=== PATIENT | female | born 1980 | race Two or more races ===

== ENCOUNTER → 2017-06-13 | Outpatient (REF) | payer OTHER | LOC: M LAB REF 17:44 | PROVIDERS: ATTEND Advanced Practice Midwife | DX: Z12.4 Encounter for screening for malignant neoplasm of cervix (principal) ==

== ENCOUNTER → 2017-08-28 | Outpatient (REF) | payer OTHER | LOC: M SFHCLERA 14:36 | DX: J02.9 Acute pharyngitis, unspecified (principal) ==

== ENCOUNTER → 2018-09-07 | Outpatient (REF) | payer BC | LOC: M SFHCLERA 09:56 | PROVIDERS: ATTEND Physician Assistant | DX: R35.0 Frequency of micturition (principal) ==

== ENCOUNTER → 2018-09-07 | Outpatient (CLI) | payer BC ==
--- NOTE | 2018-09-07 11:38 | REP ---
KUB ABDOMEN AND PELVIS: KUB film of abdomen and pelvis is performed. There is moderate fecal material throughout the colon. No dilated small bowel loops are seen. Metallic clips are seen in the right upper quadrant. IMPRESSION: Moderate fecal retention. Electronically Signed by Ramon Sotomayor MD 09/07/2018 07:02 P
== END ==
LOC: M LRY 09:40
PROVIDERS: ATTEND Physician Assistant
DX: R39.9 Unspecified symptoms and signs involving the genitourinary system (principal); K59.00 Constipation, unspecified

== ENCOUNTER → 2019-02-24 | Outpatient (REF) | payer OTHER | LOC: M SFHCLERA 09:20 | PROVIDERS: ATTEND Family Medicine | DX: R10.13 Epigastric pain (principal) ==

== ENCOUNTER → 2019-05-28 | Outpatient (REF) | payer OTHER | LOC: M SFHCLERA 15:00 | PROVIDERS: ATTEND Family Medicine | DX: R33.9 Retention of urine, unspecified (principal) ==

== ENCOUNTER → 2019-05-29 | Outpatient (REF) | payer OTHER ==
[2019-05-29 20:23] LABS: APPEARANCE, URINE CLEAR (CLEAR); BACTERIA, URINE AUTO 1+ (NEGATIVE); BILIRUBIN, URINE AUTO NEGATIVE (NEGATIVE); BLOOD, URINE BLOOD 1+ (NEGATIVE); COLOR, URINE STRAW (YELLOW); GLUCOSE, URINE (UA) AUTO NEGATIVE (NEGATIVE); KETONE, URINE AUTO NEGATIVE (NEGATIVE); LEUKOCYTE ESTERASE, URINE AUTO 1+ (NEGATIVE); NITRITE, URINE AUTO NEGATIVE (NEGATIVE); PROTEIN, URINE AUTO NEGATIVE (NEGATIVE); RBC, URINE AUTO 0 /HPF (0-3); SPECIFIC GRAVITY URINE AUTO 1.004 (1.002-1.035); SQUAMOUS EPITHELIAL CELL UR AU 1 /HPF (0-6); UROBILINOGEN, URINE AUTO 0.2 mg/dL (0.0-2.0); WBC, URINE AUTO 2 /HPF (0-3)
[2019-05-29 20:24] LABS: BLOOD UREA NITROGEN 10 MG/DL (7-18); CALCIUM LEVEL 8.9 MG/DL (8.5-10.1); CARBON DIOXIDE LEVEL 28 MEQ/L (21-32); CHLORIDE LEVEL 107 MEQ/L (98-107); CREATININE FOR GFR 0.81 MG/DL (0.55-1.30); GLOMERULAR FILTRATION RATE > 60.0 (>60); GLUCOSE, FASTING 60 MG/DL (70-100); POTASSIUM SERUM 3.9 MEQ/L (3.5-5.1); SODIUM LEVEL 140 MEQ/L (136-145)
== END ==
LOC: M SFHCLERA 17:19
PROVIDERS: ATTEND Family Medicine
DX: R33.9 Retention of urine, unspecified (principal)

== ENCOUNTER → 2019-06-03 | Outpatient (CLI) | payer OTHER ==
--- NOTE | 2019-06-04 10:54 | REP ---
Clinical: Sensation of incomplete bladder emptying and frequency. Technique: Real time ramos scale and color ultrasound examination using curved array transducer. Findings: Bladder appears well distended and normal. No abnormal wall thickening or mass lesion appreciated. Bilateral ureteral jets noted. Prevoid bladder measures 10.3 x 9.0 x 10.0 cm (824 ml). Postvoid bladder measures 2.3 x 3.6 x 3.1 cm (26 ml). Postvoid residual equals 3%. Impression: Normal bladder ultrasound. Electronically Signed by Leon Vazquez MD 06/04/2019 10:46 A
== END ==
LOC: M LRY 13:28
PROVIDERS: ATTEND Family Medicine
DX: R33.9 Retention of urine, unspecified (principal)

== ENCOUNTER → 2020-01-20 | Outpatient (CLI) | payer OTHER ==
[~2020-01-20] MED LIST: E-Z-GAS II EFFERVESCENT PACKET (SODIUM BICARB./CITRIC ACID/SIMETHICONE) As Ordered ONE; E-Z-HD 98% w/w 340GM SUSP BTL As Ordered ONE; E-Z-PAQUE 96% w/w SUSP 176GM BTL As Ordered ONE
--- NOTE | 2020-01-20 19:58 | REP ---
Examination Requested: Esophagram Barium Swallow Reason For Exam/Comment: Globus sensation, dysphasia Esophagram: The procedure was performed SOHAIL Roberson, under the direct supervision of Dr. Sotomayor. The images were reviewed with Dr. Sotomayor. A single PA chest x-ray is submitted as a maturity checker film. The superior mediastinal structures are midline. The heart size is within normal limits. The lungs are clear. Liquid barium and gas producing granules were given in the erect position as well as liquid barium in the prone oblique position, in order to perform a double contrast esophagram examination. Oral and pharyngeal stages of the examination were unremarkable. Esophageal transport is efficient and there is no esophagitis, stricture, or mucosal ring noted. There is no hiatal hernia noted. Gastroesophageal reflux was not visualized during this exam. Impression: 1. Unremarkable barium swallow. 0.2 minutes of fluoroscopy time was utilized for this procedure. Some fluoroscopic images are performed with last image hold technology. These images require no additional radiation. Reviewed by SOHAIL Daniel 01/20/2020 03:16 P Electronically Signed by Ramon Sotomayor MD 01/20/2020 07:49 P
== END ==
LOC: M RAD 07:54
PROVIDERS: ATTEND Family Medicine
DX: R13.10 Dysphagia, unspecified (principal)

== ENCOUNTER → 2020-03-04 | Outpatient (CLI) | payer OTHER ==
--- NOTE | 2020-04-26 09:29 | REP ---
THYROID ULTRASOUND HISTORY: Dysphagia. TECHNIQUE: Real-time sonographic evaluation of the thyroid is performed. FINDINGS: Right lobe measures 5.0 x 1.8 x 1.4 cm and left lobe 4.7 x 1.4 x 1.5 cm. Size is slightly prominent, but not significantly enlarged. No cystic or solid nodule is seen bilaterally. IMPRESSION: Essentially unremarkable thyroid ultrasound. MTDD
== END ==
LOC: M RAD 07:49
PROVIDERS: ATTEND Nurse Practitioner Family
DX: R13.10 Dysphagia, unspecified (principal)

== ENCOUNTER → 2020-04-01 | Outpatient (CLI) | payer OTHER ==
[2020-04-01 19:18] LABS: BASO % 0.9 % (0.0-1.0); EOS # 0.1 10^3/uL (0.0-0.5); EOS % 1.8 % (0.0-3.0); HEMATOCRIT 40.7 % (36.0-47.0); LYMPH # 1.3 10^3/uL (1.5-5.0); LYMPH % 38.1 % (24.0-44.0); MEAN CORPUSCULAR HEMOGLOBIN 30.4 pg (27.0-33.0); MEAN CORPUSCULAR HGB CONC 31.9 g/dl (32.0-36.5); MEAN CORPUSCULAR VOLUME 95.1 fl (80.0-96.0); MONO # 0.3 10^3/uL (0.0-0.8); MONO % 9.6 % (0.0-5.0); NEUTROPHILS # 1.7 10^3/uL (1.5-8.5); NEUTROPHILS % 49.6 % (36.0-66.0); PLATELET COUNT, AUTOMATED 211 10^3/uL (150-450); RED BLOOD COUNT 4.28 10^6/uL (4.00-5.40); WHITE BLOOD COUNT 3.3 10^3/uL (4.0-10.0)
[2020-04-01 19:36] LABS: FREE T4 1.04 NG/DL (0.76-1.46); THYROID STIMULATING HORMONE 1.64 uIU/ML (0.358-3.740)
== END ==
LOC: M LRY 08:51 → M WUC 08:51
PROVIDERS: ATTEND Nurse Practitioner Family
DX: D50.9 Iron deficiency anemia, unspecified (principal)

== ENCOUNTER → 2020-04-12 | Outpatient (CLI) | payer OTHER ==
--- NOTE | 2020-04-27 16:56 | REP ---
LIMITED PELVIC ULTRASOUND CLINICAL: Right inguinal mass. TECHNIQUE: Real-time ramos scale and color evaluation using linear high frequency transducer. FINDINGS: Ultrasound examination at the right groin overlying the palpable area demonstrates two normal appearing lymph nodes measuring 16 x 6 x 9 mm and 14 x 5 x 10 mm. No further abnormalities are appreciated. IMPRESSION: Palpable mass corresponds to two normal appearing lymph nodes. MTDD
== END ==
LOC: M RAD 15:33
PROVIDERS: ATTEND Nurse Practitioner Family
DX: R22.2 Localized swelling, mass and lump, trunk (principal)

== ENCOUNTER → 2020-08-03 | Outpatient (REF) | payer OTHER | LOC: M SFHCWAGY 10:07 | PROVIDERS: ATTEND Advanced Practice Midwife | DX: Z12.4 Encounter for screening for malignant neoplasm of cervix (principal) ==

== ENCOUNTER → 2020-08-05 | Outpatient (CLI) | payer OTHER ==
--- NOTE | 2020-08-05 07:56 | REP ---
INDICATION: N94.10 DYSPAREUNIA COMPARISON: 02/26/2011 TECHNIQUE: Transabdominal pelvic ultrasound followed by transvaginal examination for better evaluation of the endometrium and adnexa with color evaluation of the ovaries. FINDINGS: Bladder is collapsed. Heterogeneous anteverted uterus measures 8.7 x 4.1 x 5.5. The endometrial complex measures 9.4 mm thickness. No discrete uterine or endometrial abnormalities are appreciated. Bilateral ovaries are normal in appearance and vascularity without evidence for torsion. Right ovary measures 4.1 x 2.5 x 2.1 cm; left ovary measures 3.9 x 2.6 x 1.9 cm with 1.4 x 1.3 x 1.6 cm complex cystic structure with surrounding vascularity likely resolving dominant follicle period No pelvic fluid or adnexal mass lesion. IMPRESSION: Heterogeneous anteverted uterus otherwise unremarkable by ultrasound. Bilateral ovaries without torsion. Left hypervascular ovarian complex cyst likely involuting dominant follicle. <Electronically signed by Leon Vazquez > 08/05/20 [id number]
== END ==
LOC: M WHC 06:14
PROVIDERS: ATTEND Advanced Practice Midwife
DX: N94.10 Unspecified dyspareunia (principal)

== ENCOUNTER → 2020-09-12 | Outpatient (CLI) | payer OTHER ==
--- NOTE | 2020-09-13 08:56 | REP ---
INDICATION: CONSTIPATION. COMPARISON: Comparison study 07 September 2018.. TECHNIQUE: Two supine views the abdomen are presented. FINDINGS: There is moderate formed stool in the ascending, transverse and descending colon. The rectum does not appear distended. The colon is not dilated. Psoas margins and flank stripes are intact. No small bowel dilation is seen. There are clips in right upper quadrant. No mass, organomegaly or pathologic calcification is seen. IMPRESSION: Moderate stool as above. No acute abdominal abnormality. <Electronically signed by Rolly Martinez > 09/13/20 [id number]
== END ==
LOC: M WUC 15:07
PROVIDERS: ATTEND Nurse Practitioner Family
DX: K59.01 Slow transit constipation (principal)

== ENCOUNTER → 2021-01-11 | Outpatient (CLI) | payer OTHER ==
[~2021-01-11] MED LIST changes: -E-Z-GAS II EFFERVESCENT PACKET (SODIUM BICARB./CITRIC ACID/SIMETHICONE) As Ordered ONE; -E-Z-HD 98% w/w 340GM SUSP BTL As Ordered ONE; -E-Z-PAQUE 96% w/w SUSP 176GM BTL As Ordered ONE; +GASTROGRAFIN SOLUTION 30ML (Q9963) As Ordered ONE; +ISOVUE-370 76% 100ML VIAL As Ordered ONE
--- NOTE | 2021-01-11 16:17 | REP ---
INDICATION: RT ANTERIOR HIP MASS. COMPARISON: None. TECHNIQUE: Standard helical technique after the intravenous administration of 100 cc Isovue 370 and oral bowel preparatory contrast administration prior to the exam. FINDINGS: The technologist has placed a BB marker on the skin over the right lower quadrant or the patient has a complaint of a palpable mass. The liver, spleen, pancreas, adrenal glands, and kidneys are within normal limits. The abdominal aorta and para-aortic regions are within normal limits. The bowel loops and the mesenteries are within normal limits. There is no free fluid or free air. There is no mass or adenopathy. No abnormality is noted subjacent to the marker placed by the technologist right lower quadrant. Bone window technique throughout the exam shows the osseous structures to be within normal limits. IMPRESSION: CT findings are within normal limits. There is no evidence of a mass. Findings as described above. <Electronically signed by Lawrence Tom > 01/11/21 [id number]
== END ==
LOC: M RAD 14:20
PROVIDERS: ATTEND Nurse Practitioner Family
DX: R19.09 Other intra-abdominal and pelvic swelling, mass and lump (principal)
CPT/HCPCS: 74177; Q9963; Q9967

== ENCOUNTER → 2021-02-23 | Outpatient (REF) | payer OTHER | LOC: M LAB REF 18:01 | PROVIDERS: ATTEND Surgery | DX: D17.9 Benign lipomatous neoplasm, unspecified (principal) ==

== ENCOUNTER → 2021-08-18 | Outpatient (REF) | payer BC, OTHER | LOC: M SFHCLERA 17:31 | PROVIDERS: ATTEND Nurse Practitioner Family | DX: R39.9 Unspecified symptoms and signs involving the genitourinary system (principal) ==

== ENCOUNTER → 2021-08-31 | Outpatient (CLI) | payer BC ==
[2021-08-31 13:14] LABS: BASO % 1.1 % (0.0-1.0); EOS % 1.1 % (0.0-3.0); HEMATOCRIT 35.6 % (36.0-47.0); LYMPH # 1.5 10^3/uL (1.5-5.0); LYMPH % 43.3 % (24.0-44.0); MEAN CORPUSCULAR HEMOGLOBIN 26.9 pg (27.0-33.0); MEAN CORPUSCULAR HGB CONC 30.9 g/dl (32.0-36.5); MONO # 0.4 10^3/uL (0.0-0.8); MONO % 11.1 % (2.0-8.0); NEUTROPHILS # 1.5 10^3/uL (1.5-8.5); NEUTROPHILS % 43.1 % (36.0-66.0); PLATELET COUNT, AUTOMATED 266 10^3/uL (150-450); RED BLOOD COUNT 4.09 10^6/uL (4.00-5.40); WHITE BLOOD COUNT 3.5 10^3/uL (4.0-10.0)
[2021-08-31 13:53] LABS: ALBUMIN 3.4 GM/DL (3.2-5.2); ALT/SGPT 28 U/L (12-78); BILIRUBIN,TOTAL 0.3 MG/DL (0.2-1.0); BLOOD UREA NITROGEN 10 MG/DL (7-18); CALCIUM LEVEL 8.6 MG/DL (8.5-10.1); CARBON DIOXIDE LEVEL 28 MEQ/L (21-32); CHLORIDE LEVEL 110 MEQ/L (98-107); CREATININE FOR GFR 0.71 MG/DL (0.55-1.30); FERRITIN < 3 NG/ML (8-252); FREE T4 1.07 NG/DL (0.76-1.46); GLOMERULAR FILTRATION RATE > 60.0 (>58); GLUCOSE, FASTING 83 MG/DL (70-100); POTASSIUM SERUM 4.5 MEQ/L (3.5-5.1); SODIUM LEVEL 140 MEQ/L (136-145); TOTAL PROTEIN 6.7 GM/DL (6.4-8.2)
== END ==
LOC: M PLALAB 11:27
PROVIDERS: ATTEND Nurse Practitioner Family
DX: R20.2 Paresthesia of skin (principal)

== ENCOUNTER → 2022-03-09 | Outpatient (REF) | payer BC, OTHER | LOC: M SFHCPLAZ 16:52 | PROVIDERS: ATTEND Physician Assistant | DX: R35.0 Frequency of micturition (principal) ==

== ENCOUNTER → 2022-03-16 | Outpatient (CLI) | payer BC, OTHER ==
[2022-03-16 13:56] LABS: BASO % 0.3 % (0.0-1.0); EOS # 0.1 10^3/uL (0.0-0.5); EOS % 1.6 % (0.0-3.0); HEMATOCRIT 35.5 % (36.0-47.0); HEMOGLOBIN 10.9 g/dl (12.0-15.5); LYMPH # 1.8 10^3/uL (1.5-5.0); LYMPH % 48.4 % (24.0-44.0); MEAN CORPUSCULAR HGB CONC 30.7 g/dl (32.0-36.5); MEAN CORPUSCULAR VOLUME 87.9 fl (80.0-96.0); MONO # 0.3 10^3/uL (0.0-0.8); MONO % 7.7 % (2.0-8.0); NEUTROPHILS # 1.5 10^3/uL (1.5-8.5); NEUTROPHILS % 41.7 % (36.0-66.0); PLATELET COUNT, AUTOMATED 280 10^3/uL (150-450); RED BLOOD COUNT 4.04 10^6/uL (4.00-5.40); WHITE BLOOD COUNT 3.7 10^3/uL (4.0-10.0)
[2022-03-16 14:34] LABS: ALBUMIN 4.1 GM/DL (3.2-5.2); ALT/SGPT 28 U/L (12-78); BILIRUBIN,TOTAL 0.5 MG/DL (0.2-1.0); BLOOD UREA NITROGEN 13 MG/DL (7-18); CALCIUM LEVEL 9.6 MG/DL (8.5-10.1); CARBON DIOXIDE LEVEL 31 MEQ/L (21-32); CHLORIDE LEVEL 108 MEQ/L (98-107); CREATININE FOR GFR 0.86 MG/DL (0.55-1.30); GLOMERULAR FILTRATION RATE > 60.0 (>58); GLUCOSE, FASTING 80 MG/DL (70-100); POTASSIUM SERUM 4.5 MEQ/L (3.5-5.1); SODIUM LEVEL 141 MEQ/L (136-145); TOTAL PROTEIN 7.7 GM/DL (6.4-8.2)
== END ==
LOC: M PLALAB 11:41
PROVIDERS: ATTEND Physician Assistant
DX: R10.9 Unspecified abdominal pain (principal); R35.0 Frequency of micturition

== ENCOUNTER → 2022-03-19 | Outpatient (CLI) | payer BC, OTHER | LOC: M WHC 10:14 | PROVIDERS: ATTEND Physician Assistant | DX: R10.9 Unspecified abdominal pain (principal); R35.0 Frequency of micturition ==

== ENCOUNTER → 2022-03-21 | Outpatient (CLI) | payer BC, OTHER | LOC: M LABSMTC 09:02 | PROVIDERS: ATTEND Anesthesiology | DX: Z01.812 Encounter for preprocedural laboratory examination (principal); Z20.822 Contact with and (suspected) exposure to COVID-19 ==

== ENCOUNTER 2022-03-26 10:36 | Day surgery (SDC) | payer BC, OTHER ==
[~2022-03-26] VITALS: Ht 162.6 cm; Wt 58.2 kg
[~2022-03-26 10:36] MED LIST changes: -GASTROGRAFIN SOLUTION 30ML (Q9963) As Ordered ONE; -ISOVUE-370 76% 100ML VIAL As Ordered ONE; +NS 1,000 ML IV ONE
[2022-03-26] MEDS ORDERED: LIDOCAINE 2% 100MG/5ML SDV (FOR ANES.) As Ordered ONE (12:33)
[2022-03-26] MEDS ORDERED: propofoL 500 MG/50 ML VIAL As Ordered ONE (12:33)
[2022-03-26] MEDS ORDERED: fentaNYL 100 MCG/2 ML INJECTION As Ordered ONE (13:12)
[2022-03-26 13:23] VITALS: BP 111/72
== END 2022-03-26 14:34 | disposition home or self-care (01) ==
LOC: M OPP 10:36
PROVIDERS: ATTEND Internal Medicine Gastroenterology
DX: D12.2 Benign neoplasm of ascending colon (principal); K63.5 Polyp of colon; K64.8 Other hemorrhoids; K58.1 Irritable bowel syndrome with constipation; K29.70 Gastritis, unspecified, without bleeding; Z80.41 Family history of malignant neoplasm of ovary; Z79.3 Long term (current) use of hormonal contraceptives; Z79.899 Other long term (current) drug therapy
CPT/HCPCS: 43239; 45385; 88305; 88342; J3010

== ENCOUNTER → 2022-09-17 | Outpatient (REF) | payer BC | LOC: M SFHCWAGY 10:37 | PROVIDERS: ATTEND Nurse Practitioner Family | DX: Z12.4 Encounter for screening for malignant neoplasm of cervix (principal) | CPT/HCPCS: 87624; G0123 ==

== ENCOUNTER → 2022-10-05 | Outpatient (CLI) | payer BC | LOC: M WHC 07:29 | PROVIDERS: ATTEND Nurse Practitioner Family | DX: R10.2 Pelvic and perineal pain (principal) ==

== ENCOUNTER 2023-06-23 12:26 | Emergency (ER) | payer OTHER ==
[~2023-06-23] VITALS: Ht 162.6 cm; Wt 60.9 kg
[2023-06-23 12:27] VITALS: TEMP 97.9
[2023-06-23] MEDS ORDERED: GABA-282 (12:39)
[2023-06-23 16:14] VITALS: BP 124/76; O2SAT 100
== END 2023-06-23 16:15 | disposition home or self-care (01) ==
LOC: M ED 12:26
DX: M79.661 Pain in right lower leg (principal); G60.9 Hereditary and idiopathic neuropathy, unspecified; Z79.891 Long term (current) use of opiate analgesic

== ENCOUNTER → 2024-01-23 | Outpatient (CLI) | payer OTHER, BC ==
[~2024-01-23] MED LIST changes: +GABA-282; -NS 1,000 ML IV ONE
== END ==
LOC: M PLAIMG 11:28
PROVIDERS: ATTEND Family Medicine
DX: Z53.9 Procedure and treatment not carried out, unspecified reason (principal)

== ENCOUNTER → 2024-08-10 | Outpatient (REF) ==
[~2024-08-10] MED LIST changes: +GABA-1172; -GABA-282
== END ==
LOC: M PLAIMG 09:33
PROVIDERS: ATTEND Internal Medicine
DX: R52 Pain, unspecified (principal)

== ENCOUNTER → 2024-08-21 | Outpatient (REF) | LOC: M PLAIMG 15:35 | PROVIDERS: ATTEND Internal Medicine | DX: M25.571 Pain in right ankle and joints of right foot (principal) ==

== ENCOUNTER → 2025-05-13 | Outpatient (CLI) | payer BC ==
[2025-05-13 18:03] LABS: PLATELET COUNT, AUTOMATED 235 10^3/uL (150-450)
[2025-05-13 18:32] LABS: ALT/SGPT 16 U/L (7.0-40); AST/SGOT 17 U/L (<34); CALCIUM LEVEL 9.5 MG/DL (8.5-10.1); CARBON DIOXIDE LEVEL 29 MMOL/L (20-31); CHLORIDE LEVEL 103 MMOL/L (98-107); CREATININE FOR GFR 0.73 MG/DL (0.55-1.30); FREE T4 1.24 NG/DL (0.89-1.76); GLOMERULAR FILTRATION RATE > 90.0 (>58); LUTEINIZING HORMONE 12.6 mIU/ML; POTASSIUM SERUM 4.4 MMOL/L (3.5-5.1); SODIUM LEVEL 142 MMOL/L (136-145)
[2025-05-13 18:33] LABS: ESTRADIOL 94.8 PG/ML
== END ==
LOC: M PLALAB 16:22
PROVIDERS: ATTEND Student in an Organized Health Care Education/Training Program
DX: E28.2 Polycystic ovarian syndrome (principal); Z80.41 Family history of malignant neoplasm of ovary

== ENCOUNTER → 2025-05-13 | Outpatient (REF) | payer BC | LOC: M PLALAB 16:00 | PROVIDERS: ATTEND Student in an Organized Health Care Education/Training Program | DX: Z53.9 Procedure and treatment not carried out, unspecified reason (principal) ==